=== PATIENT | female | born 2000 | race Caucasian/White ===

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

== ENCOUNTER 2024-03-17 13:53 | Emergency (ER) | payer BC | END 2024-03-17 14:48 | disposition home or self-care (01) | LOC: DL.ED 13:53 | DX: S93.492A Sprain of other ligament of left ankle, initial encounter (principal); Z88.0 Allergy status to penicillin; X50.1XXA Overexertion from prolonged static or awkward postures, initial encounter; Y93.89 Activity, other specified | CPT/HCPCS: 73610-LT; 99283 ==